=== PATIENT | female | born 1930 | race Caucasian/White ===

== ENCOUNTER 2022-02-07 19:38 | Inpatient (IN) | payer MEDICARE, OTHER ==
[~2022-02-07] VITALS: Ht 154.9 cm; Wt 59.0 kg
[2022-02-07] MEDS ORDERED: ONDANSETRON 4 MG/2 ML VIAL IV ONE (19:45)
[2022-02-07] MEDS ORDERED: IV NORMAL SALINE 500 ML BAG IV ONE (19:45)
--- NOTE | 2022-02-07 20:00 | NUR ---
Patient's daughter at bedside
--- NOTE | 2022-02-07 20:00 | NUR ---
Patient is a hard stick. tried 3x. Asked Stacey HENDERSON to do IV
[2022-02-07] MEDS ORDERED: ONDANSETRON 4 MG/2 ML VIAL ONE (20:04)
--- NOTE | 2022-02-07 20:04 | NUR ---
Patient is a/ox4, NAD noted. No SOB noted
--- NOTE | 2022-02-07 20:10 | NUR ---
Stacey HENDERSON tried inserting IV. Patient is a hard stick
--- NOTE | 2022-02-07 20:10 | NUR ---
patient taken to CT
[2022-02-07 20:18] LABS: HEMATOCRIT 33.1 % (31.2-41.9); MEAN CORPUSCULAR HEMOGLOBIN 31.3 uug (24.7-32.8); MEAN CORPUSCULAR VOLUME 90.2 fL (75.5-95.3); PLATELET COUNT (AUTO) 276 K/uL (179-408)
--- NOTE | 2022-02-07 20:30 | NUR ---
Patient back from CT
[2022-02-07 20:47] LABS: ALANINE AMINOTRANSFERASE 38 U/L (14-59); ALKALINE PHOSPHATASE 81 U/L (50-136); ASPARTATE AMINOTRANSFERASE 22 U/L (15-37); BILIRUBIN,DIRECT 0.1 mg/dL (0.0-0.2); BILIRUBIN,TOTAL 0.2 mg/dL (0.2-1.0); CARBON DIOXIDE 24 mmol/L (21-32); CHLORIDE 92 mmol/L (98-107); CREATININE 0.8 mg/dL (0.6-1.3); GLUCOSE 137 mg/dL (74-106); LIPASE 213 U/L (73-393); POTASSIUM 3.9 mmol/L (3.5-5.1); TOTAL PROTEIN, SERUM 6.6 g/dL (6.4-8.2); UREA NITROGEN, BLOOD 22 mg/dL (7-18)
[2022-02-07 21:03] LABS: *BILIRUBIN,URIN NEGATIVE (NEGATIVE); *BLOOD, URINE NEGATIVE (NEGATIVE); *CLARITY,URINE CLEAR (CLEAR); *COLOR,URINE YELLOW (YELLOW); *KETONES,URINE 1+ (NEGATIVE); *UROBILINOGEN,URINE 0.2 E.U./dl (NORMAL); LEUKOCYTE ESTERASE ,URINE NEGATIVE (NEGATIVE); NITRITE, URINE NEGATIVE (NEGATIVE); PH,URINE 6.5 (5.0-8.0); UGLUCOSE NEGATIVE (NEGATIVE)
--- NOTE | 2022-02-07 21:32 | NUR ---
called [facility] for panel call
--- NOTE | 2022-02-07 22:00 | NUR ---
Patient will be admitted to TELE room [address]ena
[2022-02-07] MEDS ORDERED: AMLO-212 PO (22:17)
[2022-02-07] MEDS ORDERED: INSU100C4 SQ (22:17)
[2022-02-07] MEDS ORDERED: METF-440 PO (22:17)
[2022-02-07] MEDS ORDERED: PRAV20TA4 PO (22:17)
[2022-02-07] MEDS ORDERED: LORA-259 PO (22:17)
[2022-02-07] MEDS ORDERED: LINA145C PO (22:17)
[2022-02-07] MEDS ORDERED: INSU100V7 SQ (22:17)
[2022-02-07] MEDS ORDERED: CARV12.52 PO (22:17)
[2022-02-07] MEDS ORDERED: CELE200C PO (22:17)
[2022-02-07] MEDS ORDERED: ONDANSETRON 4 MG/2 ML VIAL IV PRN (23:15)
[2022-02-07] MEDS ORDERED: PIPERACILLIN SODIUM/TAZOBACTAM 4.5 G in IV DEXTROSE 5% 50 ML IV SCH (23:15)
[2022-02-07] MEDS ORDERED: ACETAMINOPHEN 325 MG TABLET PO PRN (23:15)
[2022-02-07] MEDS ORDERED: REMEDY ESSENTIAL ZINC PASTE 113 GM TP PRN (23:15)
--- NOTE | 2022-02-07 23:38 | NUR ---
Tear Down Matcher made aware of midline order
--- NOTE | 2022-02-08 00:05 | NUR ---
Pt. admitted to TELE room 311 , under care of Dr. Pena Belongs List completed Phil[place] RN aware of patient's arrival
[2022-02-08] MEDS ORDERED: PIPERACILLIN/TAZO 4.5 GM VIAL IV ONE (00:16)
[2022-02-08] MEDS ORDERED: PIPERACILLIN SODIUM/TAZOBACTAM 4.5 G in IV DEXTROSE 5% 50 ML IV ONE (01:00)
--- NOTE | 2022-02-08 03:00 | NUR ---
Admitted TO ROOM 311; New IVHL placed ON RIGHT FOREARM; PT HAS AN ORDER FOR A MIDLINE; pt's needs attended; kept on clear liqs; patient uses bedpan at this time and refused lackey catheter; safety maintained;
[2022-02-08 04:00] VITALS: BP 99/59
[2022-02-08 06:38] LABS: MEAN CORPUSCULAR HEMOGLOBIN 31.3 uug (24.7-32.8); MEAN CORPUSCULAR VOLUME 90.2 fL (75.5-95.3); PLATELET COUNT (AUTO) 248 K/uL (179-408)
[2022-02-08 06:47] LABS: BILIRUBIN,TOTAL 0.5 mg/dL (0.2-1.0); CREATININE 0.8 mg/dL (0.6-1.3); MAGNESIUM 1.5 mg/dL (1.8-2.4); PHOSPHOROUS 1.9 mg/dL (2.5-4.9); POTASSIUM 3.6 mmol/L (3.5-5.1); TOTAL PROTEIN, SERUM 5.9 g/dL (6.4-8.2)
[2022-02-08] MEDS: AMLODIPINE 5 MG TABLET PO SCH ×2 (08:47→21:00)
[2022-02-08] MEDS: CARVEDILOL 12.5 MG TABLET PO SCH ×2 (08:47→17:31)
[2022-02-08] MEDS: PIPERACILLIN SODIUM/TAZOBACTAM 3.375 G in IV DEXTROSE 5% 100 ML IV SCH ×3 (08:48→21:07)
[2022-02-08] MEDS ORDERED: LORAZEPAM 1 MG TABLET PO PRN (09:00)
[2022-02-08] MEDS ORDERED: LORAZEPAM 1 MG TABLET PO SCH (09:00)
[2022-02-08] MEDS ORDERED: MAGNESIUM SULFATE/D5W 100 ML IV SCH ×2 (09:15→13:45)
[2022-02-08] MEDS: MAGNESIUM SULFATE/D5W 100 ML IV SCH ×2 (10:55→11:57)
[2022-02-08] MEDS ORDERED: SODIUM PHOSPHATE MM 15 MMOL in IV NORMAL SALINE 250 ML IV ONE (13:45)
--- NOTE | 2022-02-08 16:02 | NUR ---
To wait for Daughter before scanning the patient for CT Chest High Resolution, due to not being able to fallow instructions in language of patient. Yesterday, patient was unable to hold breath and fallow instruction for Abdomen/pelvis exam. RN to call Radiology when daughter is available today to translate when in scan.
--- NOTE | 2022-02-08 18:50 | NUR ---
Patient received care well throughout shift with no complaints of pain or distress. Patient now has Left upper arm midline, 18G. IV site patent and intact currently finishing sodium phosphate. Patient to receive Zosyn at 1999. Will endorse information to PM nurse. Patient had CT of Chest today, with patient's daughter at bedside. Bed left in lowest position with call light within reach. Comfort measures provided. Will endorse information to PM nurse.
[2022-02-08 20:00] VITALS: BP 127/39
[2022-02-08] MEDS: ATORVASTATIN 10 MG TABLET PO SCH (21:07)
[2022-02-08] MEDS: FUROSEMIDE 20 MG/2 ML VIAL IV SCH (21:07)
[2022-02-09] VITALS: BP 106/37
[2022-02-09] MEDS: PIPERACILLIN SODIUM/TAZOBACTAM 3.375 G in IV DEXTROSE 5% 100 ML IV SCH ×3 (02:03→16:24)
[2022-02-09 04:00] VITALS: BP 110/44
--- NOTE | 2022-02-09 05:40 | NUR ---
Slept well throughout the night. No distress noted. Maintained clear liquid diet, pt tolerating well. Denies pain or SOB. IV site intact. Tolerated ordered medications well. Safety maintained throughout the shift, will endorse to day shift.
[2022-02-09 06:43] LABS: CREATININE 0.8 mg/dL (0.6-1.3); POTASSIUM 3.2 mmol/L (3.5-5.1)
[2022-02-09] MEDS: FUROSEMIDE 20 MG/2 ML VIAL IV SCH ×2 (08:40→20:50)
[2022-02-09] MEDS: AMLODIPINE 5 MG TABLET PO SCH ×2 (08:44→20:50)
[2022-02-09] MEDS: CARVEDILOL 12.5 MG TABLET PO SCH ×2 (08:44→17:09)
[2022-02-09] MEDS ORDERED: POTASSIUM CHLORIDE 20 MEQ TAB.PRT.SR PO SCH (09:15)
[2022-02-09] MEDS: POTASSIUM CHLORIDE 20 MEQ POWDER PACKET PO SCH ×2 (09:25→10:44)
[2022-02-09] MEDS ORDERED: POTASSIUM CHLORIDE 20 MEQ POWDER PACKET PO ONE (09:45)
[2022-02-09 17:07] VITALS: BP 135/43
--- NOTE | 2022-02-09 18:03 | NUR ---
Patient received care well throughout shift with no complaints of pain or distress. Patient received klor-con during shift, due to low levels of potassium. Labs to be redrawn tomorrow for update. Patient bathed and washed during shift. IV site patent and intact. Patient remains on clear liquid diet, and tolerating feeding well. Bed left in lowest position with call light within reach. Comfort measures provided. Will endorse information to PM nurse.
[2022-02-09 20:29] VITALS: BP 119/33
[2022-02-09] MEDS: ATORVASTATIN 10 MG TABLET PO SCH (20:50)
[2022-02-10] MEDS: PIPERACILLIN SODIUM/TAZOBACTAM 3.375 G in IV DEXTROSE 5% 100 ML IV SCH ×3 (01:04→17:36)
[2022-02-10 04:40] VITALS: BP 133/42
--- NOTE | 2022-02-10 05:36 | NUR ---
Slept throughout the night. Bed bath given this AM, tolerated well. IV site intact. Tolerated all medications well with no adverse effectsw
[2022-02-10] MEDS: CARVEDILOL 12.5 MG TABLET PO SCH ×2 (08:00→17:13)
[2022-02-10] MEDS: AMLODIPINE 5 MG TABLET PO SCH ×2 (09:00→20:33)
[2022-02-10] MEDS: FUROSEMIDE 20 MG/2 ML VIAL IV SCH (09:20)
[2022-02-10] MEDS: GUAIFENESIN/DEXTROMETHORPHAN 5 ML UDC PO PRN (11:42)
[2022-02-10 12:06] VITALS: BP 102/40
--- NOTE | 2022-02-10 19:30 | NUR ---
Received pt awake, alert and orientedx3. Pt in no acute distress. Iv intact. Safety and comfort provided. Will continue to monitor. Addendum: 02/11/22 at 0231 by ELHAM BEEBE RN wrong time documented should be 2300
[2022-02-10 20:00] VITALS: BP 158/49
--- NOTE | 2022-02-10 20:00 | NUR ---
NSG: Received lying on bed no complaints of pain or distress. Patient now has Left upper arm midline IV site patent and intact. no c/o pain or discomfort at this time. Bed left in lowest position with call light within reach. Comfort measures provided.
[2022-02-10] MEDS: DOCUSATE SODIUM 100 MG CAPSULE PO SCH (20:33)
[2022-02-10] MEDS: ATORVASTATIN 10 MG TABLET PO SCH (20:33)
[2022-02-11] MEDS: PIPERACILLIN SODIUM/TAZOBACTAM 3.375 G in IV DEXTROSE 5% 100 ML IV SCH ×3 (00:46→20:14)
[2022-02-11 04:00] VITALS: BP 132/51
--- NOTE | 2022-02-11 06:52 | NUR ---
Pt in no acute distress.Midliner didn't come. Ammonium Sulfate Operator aware. Prescribed medication given and pt tolerated it well. Safety and comfort provided. All needs are met. Will endorse to incoming nurse for continuity of care.
[2022-02-11 07:03] LABS: MEAN CORPUSCULAR HEMOGLOBIN 31.7 uug (24.7-32.8); MEAN CORPUSCULAR VOLUME 90.2 fL (75.5-95.3); PLATELET COUNT (AUTO) 329 K/uL (179-408)
[2022-02-11 07:35] LABS: THYROID STIMULATING HORMONE 0.312 mIU/mL (0.358-3.740)
[2022-02-11 07:52] LABS: BILIRUBIN,TOTAL 0.5 mg/dL (0.2-1.0); CREATININE 0.9 mg/dL (0.6-1.3); MAGNESIUM 1.8 mg/dL (1.8-2.4); PHOSPHOROUS 2.8 mg/dL (2.5-4.9); POTASSIUM 3.6 mmol/L (3.5-5.1); TOTAL PROTEIN, SERUM 6.4 g/dL (6.4-8.2)
[2022-02-11] MEDS: AMLODIPINE 5 MG TABLET PO SCH ×2 (08:20→20:14)
[2022-02-11] MEDS: CARVEDILOL 12.5 MG TABLET PO SCH ×2 (08:20→17:37)
[2022-02-11] MEDS: DOCUSATE SODIUM 100 MG CAPSULE PO SCH ×2 (08:20→20:13)
[2022-02-11] MEDS ORDERED: INSULIN REGULAR, HUMAN 300 UNIT/3 ML VIAL SQ PRN (09:00)
[2022-02-11] MEDS ORDERED: DEXTROSE 50% 50 ML DISP.SYRIN IV PRN ×2 (09:00→12:00)
--- NOTE | 2022-02-11 11:28 | NUR ---
pt blood sugar by finger stick more then 600 stat lab draw orders and made aware
[2022-02-11] MEDS ORDERED: BLOOD SUGAR DIAGNOSTIC 1 EACH STRIP VI SCH (11:30)
[2022-02-11 11:39] VITALS: BP 130/41
[2022-02-11] MEDS ORDERED: METF-494 PO (11:43)
[2022-02-11] MEDS ORDERED: OLME1TAB92 PO (11:43)
[2022-02-11] MEDS ORDERED: ICOS1CAP PO (11:43)
[2022-02-11] MEDS ORDERED: ESCI-9 PO (11:43)
[2022-02-11] MEDS: METFORMIN HCL 500 MG TABLET PO SCH ×2 (11:44→17:37)
[2022-02-11] MEDS ORDERED: LIRA0.6P2 SQ (11:45)
[2022-02-11] MEDS: BLOOD SUGAR DIAGNOSTIC 1 EACH STRIP VI SCH ×3 (12:05→20:19)
[2022-02-11] MEDS: INSULIN REGULAR, HUMAN 300 UNIT/3 ML VIAL SQ PRN ×2 (12:07→15:48)
[2022-02-11 16:29] VITALS: BP 131/40
[2022-02-11] MEDS ORDERED: POLYVINYL ALCOHOL OPHT DROPS 15 ML BOTTLE EACHEYE PRN (18:00)
--- NOTE | 2022-02-11 19:40 | NUR ---
Received patient lying in bed. AAOX3. In no apparent distress. Denies any pain or SOB. Noted with sporadic cough, will provide cough medication per order. Left upper arm midline in place and right AC IV site intact and patent. Daughter at bedside. Needs assessed and attended to. Safety measure initiated and call light within reached.
[2022-02-11 20:09] VITALS: BP 110/53
[2022-02-11] MEDS: GUAIFENESIN/DEXTROMETHORPHAN 5 ML UDC PO PRN (20:26)
[2022-02-11] MEDS ORDERED: INSULIN REGULAR, HUMAN 300 UNITS/3 ML VIAL SQ PRN (21:00)
[2022-02-12 04:00] VITALS: BP 128/45
[2022-02-12] MEDS: PIPERACILLIN SODIUM/TAZOBACTAM 3.375 G in IV DEXTROSE 5% 100 ML IV SCH ×2 (04:21→12:37)
--- NOTE | 2022-02-12 05:57 | NUR ---
Patient slept well last night. In no acute distress. Denies any pain or SOB. No further coughing noted. No adverse reaction noted from IV antibiotic.
[2022-02-12 06:26] LABS: HEMATOCRIT 31.2 % (31.2-41.9); MEAN CORPUSCULAR VOLUME 89.5 fL (75.5-95.3); PLATELET COUNT (AUTO) 317 K/uL (179-408)
[2022-02-12] MEDS: BLOOD SUGAR DIAGNOSTIC 1 EACH STRIP VI SCH ×3 (06:37→15:35)
[2022-02-12 06:54] LABS: CARBON DIOXIDE 29 mmol/L (21-32); CHLORIDE 94 mmol/L (98-107); CREATININE 0.8 mg/dL (0.6-1.3); GLUCOSE 236 mg/dL (74-106); MAGNESIUM 1.5 mg/dL (1.8-2.4); PHOSPHOROUS 3.8 mg/dL (2.5-4.9); POTASSIUM 3.6 mmol/L (3.5-5.1); UREA NITROGEN, BLOOD 21 mg/dL (7-18)
[2022-02-12] MEDS: INSULIN REGULAR, HUMAN 300 UNIT/3 ML VIAL SQ PRN ×3 (07:46→15:48)
[2022-02-12] MEDS: MAGNESIUM SULFATE/D5W 100 ML IV SCH ×3 (07:48→10:33)
[2022-02-12] MEDS ORDERED: POTASSIUM CHLORIDE 20 MEQ POWDER PACKET PO ONE (08:00)
[2022-02-12] MEDS: DOCUSATE SODIUM 100 MG CAPSULE PO SCH (08:02)
[2022-02-12] MEDS: METFORMIN HCL 500 MG TABLET PO SCH ×2 (08:03→17:28)
[2022-02-12] MEDS: CARVEDILOL 12.5 MG TABLET PO SCH ×2 (08:03→17:28)
[2022-02-12] MEDS: AMLODIPINE 5 MG TABLET PO SCH (08:03)
[2022-02-12] MEDS ORDERED: MAGNESIUM OXIDE 400 MG TABLET PO ONE (09:00)
[2022-02-12] MEDS: GUAIFENESIN/DEXTROMETHORPHAN 5 ML UDC PO PRN (09:43)
[2022-02-12 15:58] VITALS: BP 135/40
[2022-02-12] MEDS ORDERED: PIPE3.379 IV (16:55)
[2022-02-12] MEDS ORDERED: MENT113O TP (16:55)
[2022-02-12] MEDS ORDERED: ACET325T53 PO (16:55)
[2022-02-12] MEDS ORDERED: POLY15DR27 EACHEYE (16:55)
[2022-02-12] MEDS ORDERED: DEXT50DI8 IV (16:55)
[2022-02-12] MEDS ORDERED: DOCU-141 PO (16:55)
[2022-02-12] MEDS ORDERED: Blood Sugar Diagnostic VI (16:55)
[2022-02-12] MEDS ORDERED: GUAI5SYR PO (16:55)
[2022-02-12] MEDS ORDERED: INSU100V28 SQ ×2 (16:55)
[2022-02-12] MEDS ORDERED: NUT.237L36 PO (16:55)
[2022-02-12] MEDS ORDERED: AMLO-212 PO (16:55)
[2022-02-12] MEDS ORDERED: GLUCERNA SHAKE 237 ML CAN PO SCH (17:00)
[2022-02-12 17:28] VITALS: BP 135/48
--- NOTE | 2022-02-12 18:08 | NUR ---
dc orders received noted and carried out dc instruction and education given to the pt. dc pt to aru via bed in stable condition
[2022-02-12] MEDS ORDERED: GUAI5SYR4 PO (18:46)
== END 2022-02-12 18:11 | DRG 393 ==
LOC: ER 19:40 → TELE3 23:43 → MEDSURG3 02-09 09:30
PROVIDERS: ADMIT Internal Medicine; ATTEND Internal Medicine
PROC: 05H633Z Insertion of Infusion Device into Left Subclavian Vein, Percutaneous Approach (ICD-10-PCS; principal; 2022-02-08)
PROC: B547ZZA Ultrasonography of Left Subclavian Vein, Guidance (ICD-10-PCS; 2022-02-08)
DX: K65.4 Sclerosing mesenteritis (principal); E43 Unspecified severe protein-calorie malnutrition; I50.31 Acute diastolic (congestive) heart failure; E87.1 Hypo-osmolality and hyponatremia; D68.59 Other primary thrombophilia; I11.0 Hypertensive heart disease with heart failure; E05.90 Thyrotoxicosis, unspecified without thyrotoxic crisis or storm; E11.65 Type 2 diabetes mellitus with hyperglycemia; E78.5 Hyperlipidemia, unspecified; E87.6 Hypokalemia; Z79.4 Long term (current) use of insulin; Z20.822 Contact with and (suspected) exposure to COVID-19; I05.2 Rheumatic mitral stenosis with insufficiency; K44.9 Diaphragmatic hernia without obstruction or gangrene; Z74.09 Other reduced mobility; Z68.24 Body mass index [BMI] 24.0-24.9, adult
CPT/HCPCS: 36415; 71045; 71270; 83605; 83690; 83735; 84100; 84443; 84484; 85025; 85730; 93005; 93307; 97161; A4663; G0378; J1815; J1940; J2405; J2543; J3475; J3490; J7040

== ENCOUNTER 2022-02-12 18:24 | Inpatient (IN) | payer MEDICARE, OTHER ==
[~2022-02-12] VITALS: Ht 154.9 cm; Wt 61.2 kg
[~2022-02-12 18:24] MED LIST: ACET325T53 PO; AMLO-212 PO; Blood Sugar Diagnostic VI; CARV12.52 PO; CELE200C PO; DEXT50DI8 IV; DOCU-141 PO; ESCI-9 PO; GUAI5SYR PO; ICOS1CAP PO; INSU100C4 SQ; INSU100V28 SQ; INSU100V7 SQ; LINA145C PO; LIRA0.6P2 SQ; LORA-259 PO; MENT113O TP; METF-494 PO; NUT.237L36 PO; OLME1TAB92 PO; PIPE3.379 IV; POLY15DR27 EACHEYE; PRAV20TA4 PO
[2022-02-12] MEDS ORDERED: GUAI5SYR4 PO (18:46)
[2022-02-12 20:40] VITALS: BP 118/30
[2022-02-12] MEDS ORDERED: LORAZEPAM 1 MG TABLET PO PRN (22:30)
[2022-02-12] MEDS ORDERED: POLYVINYL ALCOHOL OPHT DROPS 15 ML BOTTLE EACHEYE PRN (22:30)
[2022-02-12] MEDS ORDERED: INSULIN REGULAR, HUMAN 300 UNIT/3 ML VIAL SQ PRN ×2 (22:30)
[2022-02-12] MEDS ORDERED: DEXTROSE 50% 50 ML DISP.SYRIN IV PRN ×2 (22:30)
[2022-02-12] MEDS: DOCUSATE SODIUM 100 MG CAPSULE PO SCH (22:44)
[2022-02-12] MEDS: GUAIFENESIN/DEXTROMETHORPHAN 5 ML UDC PO PRN (22:45)
[2022-02-12] MEDS ORDERED: ACETAMINOPHEN 325 MG TABLET PO PRN (22:45)
[2022-02-12] MEDS: INSULIN GLARGINE,HUM 300 UNITS/3 ML CARTRIDGE SQ SCH (22:53)
[2022-02-12] MEDS ORDERED: PIPERACILLIN/TAZOBACTAM/D5W 50 ML IV ONE (23:44)
[2022-02-12] MEDS: PIPERACILLIN SODIUM/TAZOBACTAM 3.375 G in IV DEXTROSE 5% 50 ML IV SCH (23:49)
[2022-02-13 04:32] VITALS: BP 124/37
--- NOTE | 2022-02-13 05:54 | NUR ---
Pt slept throughout the night. C/o mild cough but denies SOB or any chest pain. Farsi speaking, able to make needs known. IV site intact. Tolerated all medications given. Safety maintained throughout the shift. Will endorse to day shift.
[2022-02-13] MEDS: PIPERACILLIN SODIUM/TAZOBACTAM 3.375 G in IV DEXTROSE 5% 50 ML IV SCH (06:19)
[2022-02-13] MEDS: BLOOD SUGAR DIAGNOSTIC 1 EACH STRIP VI SCH ×4 (06:32→20:46)
[2022-02-13 07:31] VITALS: BP 140/35
[2022-02-13] MEDS: INSULIN REGULAR, HUMAN 300 UNIT/3 ML VIAL SQ PRN ×4 (07:44→20:47)
[2022-02-13] MEDS ORDERED: GLUCERNA 1.2 1000ML LIQUID PO SCH (08:00)
[2022-02-13] MEDS ORDERED: Linaclotide (Linzess) 145 MCG) PO SCH (09:00)
[2022-02-13] MEDS: CARVEDILOL 12.5 MG TABLET PO SCH ×2 (09:23→16:38)
[2022-02-13] MEDS: ESCITALOPRAM OXALATE 10 MG TABLET PO SCH (09:24)
[2022-02-13] MEDS: DOCUSATE SODIUM 100 MG CAPSULE PO SCH ×2 (09:24→20:42)
[2022-02-13] MEDS: AMLODIPINE 5 MG TABLET PO SCH ×2 (09:24→20:43)
[2022-02-13] MEDS: CELECOXIB 200 MG CAPSULE PO SCH (09:24)
[2022-02-13] MEDS: GLUCERNA SHAKE 237 ML CAN PO SCH ×2 (09:25→16:38)
[2022-02-13] MEDS: METFORMIN XR 500 MG TAB.SR.24H PO SCH ×2 (09:27→18:03)
[2022-02-13] MEDS: PIPERACILLIN SODIUM/TAZOBACTAM 3.375 G in IV DEXTROSE 5% 100 ML IV SCH ×2 (13:40→21:46)
[2022-02-13] MEDS: CLOTRIMAZOLE/BETAMET DIPROP CREAM 15 GM TUBE TOP SCH ×2 (13:40→20:46)
[2022-02-13] MEDS ORDERED: PIPERACILLIN SODIUM/TAZOBACTAM 3.375 G in IV DEXTROSE 5% 50 ML IV SCH (14:00)
--- NOTE | 2022-02-13 14:03 | NUR ---
INTERDISCIPLINARY TEAM CONFERENCE
[2022-02-13 16:09] VITALS: BP 106/25
[2022-02-13 20:00] VITALS: BP 135/56
[2022-02-13] MEDS: INSULIN GLARGINE,HUM 300 UNITS/3 ML CARTRIDGE SQ SCH (21:01)
[2022-02-14 04:00] VITALS: BP 118/82
[2022-02-14] MEDS: PIPERACILLIN SODIUM/TAZOBACTAM 3.375 G in IV DEXTROSE 5% 100 ML IV SCH ×3 (05:33→21:09)
[2022-02-14] MEDS: BLOOD SUGAR DIAGNOSTIC 1 EACH STRIP VI SCH ×4 (06:19→21:08)
[2022-02-14 07:54] VITALS: BP 143/45
[2022-02-14] MEDS: INSULIN REGULAR, HUMAN 300 UNIT/3 ML VIAL SQ PRN ×3 (08:09→15:51)
[2022-02-14] MEDS: DOCUSATE SODIUM 100 MG CAPSULE PO SCH ×2 (08:10→20:58)
[2022-02-14] MEDS: METFORMIN XR 500 MG TAB.SR.24H PO SCH ×2 (08:10→17:38)
[2022-02-14] MEDS: CELECOXIB 200 MG CAPSULE PO SCH (08:10)
[2022-02-14] MEDS: ESCITALOPRAM OXALATE 10 MG TABLET PO SCH (08:11)
[2022-02-14] MEDS: GLUCERNA SHAKE 237 ML CAN PO SCH ×2 (08:11→16:14)
[2022-02-14] MEDS: AMLODIPINE 5 MG TABLET PO SCH ×2 (08:11→20:58)
[2022-02-14] MEDS: CLOTRIMAZOLE/BETAMET DIPROP CREAM 15 GM TUBE TOP SCH ×2 (08:12→21:08)
[2022-02-14] MEDS: CARVEDILOL 12.5 MG TABLET PO SCH ×2 (08:12→16:14)
[2022-02-14 15:02] VITALS: BP 129/46
--- NOTE | 2022-02-14 19:30 | NUR ---
Received pt awake, alert and orientedx3. Pt IV intact. Received pt in no acute distress. Pt daugfhter at bedside. Daughter of the pt telling staff to tell the dietary to put some taste on the food that her mom is eating. Safety and comfort provided. Will continue to monitor.
--- NOTE | 2022-02-14 19:31 | NUR ---
spoke to pt daughter GAYE .Gaye stated that staff not to be harsh in handling her mom when changing her diaper and to go quickly when her mother needed change of diaper. Staff reassure Amt that we will attend to the needs of her mother as soon as we can and will take good care of the pt.
--- NOTE | 2022-02-14 19:32 | NUR ---
bhavna is alert, oriented x4, no sob, resp even nonlabored skin warm and dry to touch, tolerated PT, OT services well, no events noted during the shfit, patient calls for change, and need met accordingly, kept clean and dry, convinced patient to ambulate to the bathroom with assist, patient refused and stated she wants to use the diaper, daughter Gaye is at bedside at this time, making accustations toward staff, saying that "nusing staff does not give a dam to patients, nurses are here to just make money and go home,thye are just sitting and hiding" this wirter tired to explain to the duaghter that your mother needs are met timely during the day shift, she is being changed frequently, kept her clean and dry. however daughter does not agree and stated that her maother is telling her that no one comes to change her. This physician underwriter have witnessnessd special effects designer assisted patieint change and with meals and with other activities throgh out the day. only skin issues patient noted with some perineal rash which is being treated with cream as ordered by MD, Seems effective. no other skin issues noted at this time, no distress noted at this time, daughter wanted to talke to cardroom supervisor, on duty cardroom supervisor Shannon made aware.
[2022-02-14 20:12] VITALS: BP 120/47
[2022-02-14] MEDS: LINZESS 145MG - PATIENT MAY USE OWN MED- MD OK PO SCH (20:58)
[2022-02-14] MEDS: INSULIN GLARGINE,HUM 300 UNITS/3 ML CARTRIDGE SQ SCH (21:05)
--- NOTE | 2022-02-14 21:30 | NUR ---
TARGET NETWORK ANALYST changed her diaper and put cream on her. Pt in no acute distress. Will continue to monitor.
--- NOTE | 2022-02-14 23:00 | NUR ---
Pt had bowel movement. Pt cleaned and put cream on perineal area. Will continue to monitor.
[2022-02-15 04:12] VITALS: BP 123/49
[2022-02-15] MEDS: PIPERACILLIN SODIUM/TAZOBACTAM 3.375 G in IV DEXTROSE 5% 100 ML IV SCH ×3 (05:33→21:12)
[2022-02-15] MEDS: BLOOD SUGAR DIAGNOSTIC 1 EACH STRIP VI SCH ×4 (06:39→20:16)
--- NOTE | 2022-02-15 06:39 | NUR ---
Pt in no acute distress. Prescribed medication given and pt tolerated it well. Pt stable. Pt vital signs stable. Pt taken care of and put cream on her perineal area. Pt can make her needs known. Will endorse to incoming nurse for continuity of care.
[2022-02-15 07:43] VITALS: BP 132/42
[2022-02-15] MEDS: GLUCERNA SHAKE 237 ML CAN PO SCH ×2 (08:57→17:13)
[2022-02-15] MEDS: METFORMIN XR 500 MG TAB.SR.24H PO SCH ×2 (08:58→17:24)
[2022-02-15] MEDS: CELECOXIB 200 MG CAPSULE PO SCH (08:59)
[2022-02-15] MEDS: DOCUSATE SODIUM 100 MG CAPSULE PO SCH ×2 (08:59→20:06)
[2022-02-15] MEDS: ESCITALOPRAM OXALATE 10 MG TABLET PO SCH (08:59)
[2022-02-15] MEDS: CLOTRIMAZOLE/BETAMET DIPROP CREAM 15 GM TUBE TOP SCH ×2 (09:00→20:21)
[2022-02-15] MEDS: INSULIN REGULAR, HUMAN 300 UNIT/3 ML VIAL SQ PRN ×3 (09:01→17:24)
[2022-02-15] MEDS: AMLODIPINE 5 MG TABLET PO SCH ×2 (09:02→20:06)
[2022-02-15] MEDS: CARVEDILOL 12.5 MG TABLET PO SCH ×2 (09:02→17:25)
[2022-02-15 15:02] VITALS: BP 125/40
--- NOTE | 2022-02-15 18:30 | NUR ---
pt is a/o x 3-4, Farsi speaking. Pt did not like meals, only had cup of soup for lunch. Daughter brought dinner from home, pt was happy to eat the food from home. No signs of acute distress. Daughter currently at bedside. No events during shift. Comfort measures provided, call light within reach. Will endorse to gallery or museum curator.
[2022-02-15 19:49] VITALS: BP 108/72
[2022-02-15] MEDS: LINZESS 145MG - PATIENT MAY USE OWN MED- MD OK PO SCH (20:05)
[2022-02-15] MEDS: GUAIFENESIN/DEXTROMETHORPHAN 5 ML UDC PO PRN (20:06)
[2022-02-15] MEDS: INSULIN REGULAR, HUMAN 300 UNITS/3 ML VIAL SQ PRN (20:18)
[2022-02-15] MEDS: INSULIN GLARGINE,HUM 300 UNITS/3 ML CARTRIDGE SQ SCH (20:20)
[2022-02-16 03:54] VITALS: BP 150/57
[2022-02-16] MEDS: PIPERACILLIN SODIUM/TAZOBACTAM 3.375 G in IV DEXTROSE 5% 100 ML IV SCH (05:40)
--- NOTE | 2022-02-16 06:14 | NUR ---
Awake alert and oriented x3-4. Patient visited by daughter, wants to speak to the doctor coz she wants to take patient home. Will relay message to incoming shift. IV ABT given as scheduled. Tolerated well. Patient having periods of diarrhea this am. kept clean and dry. All needs attended. No acute distress noted.
[2022-02-16 06:15] LABS: HEMATOCRIT 32.7 % (31.2-41.9); MEAN CORPUSCULAR HEMOGLOBIN 31.1 uug (24.7-32.8); MEAN CORPUSCULAR VOLUME 90.5 fL (75.5-95.3); PLATELET COUNT (AUTO) 347 K/uL (179-408)
[2022-02-16 06:25] LABS: CREATININE 0.8 mg/dL (0.6-1.3); MAGNESIUM 1.9 mg/dL (1.8-2.4); PHOSPHOROUS 3.5 mg/dL (2.5-4.9); POTASSIUM 3.8 mmol/L (3.5-5.1)
[2022-02-16] MEDS: BLOOD SUGAR DIAGNOSTIC 1 EACH STRIP VI SCH ×4 (06:36→21:23)
[2022-02-16 07:40] VITALS: BP 147/55
[2022-02-16] MEDS: DOCUSATE SODIUM 100 MG CAPSULE PO SCH ×2 (08:31→21:16)
[2022-02-16] MEDS: CARVEDILOL 12.5 MG TABLET PO SCH ×2 (08:31→17:25)
[2022-02-16] MEDS: ESCITALOPRAM OXALATE 10 MG TABLET PO SCH (08:31)
[2022-02-16] MEDS: AMLODIPINE 5 MG TABLET PO SCH ×2 (08:31→21:16)
[2022-02-16] MEDS: METFORMIN XR 500 MG TAB.SR.24H PO SCH ×2 (08:31→17:17)
[2022-02-16] MEDS: CELECOXIB 200 MG CAPSULE PO SCH (08:31)
[2022-02-16] MEDS: CLOTRIMAZOLE/BETAMET DIPROP CREAM 15 GM TUBE TOP SCH ×2 (08:32→21:30)
[2022-02-16] MEDS: INSULIN REGULAR, HUMAN 300 UNIT/3 ML VIAL SQ PRN ×3 (08:40→16:38)
[2022-02-16] MEDS: GLUCERNA SHAKE 237 ML CAN PO SCH ×2 (09:09→13:15)
--- NOTE | 2022-02-16 14:22 | NUR ---
IV fluids and antibiotics completed. Patient's IV site came off during physical therapy. Patient no longer in need of IV site.
[2022-02-16 15:29] VITALS: BP 126/57
--- NOTE | 2022-02-16 18:16 | NUR ---
Patient tolerated care well throughout shift with no complaints of pain or distress. Patient completed antibiotics during shift. Patient tolerating PT/OT today, and able to walk 5 feet more compared to yesterday. Pain managed through medicinal interventions. Bed left in lowest position. Comfort measures provided. Will endorse information to PM nurse.
[2022-02-16 20:32] VITALS: BP 138/38
[2022-02-16] MEDS: LINZESS 145MG - PATIENT MAY USE OWN MED- MD OK PO SCH (21:17)
[2022-02-16] MEDS: INSULIN REGULAR, HUMAN 300 UNITS/3 ML VIAL SQ PRN (21:25)
[2022-02-16] MEDS: INSULIN GLARGINE,HUM 300 UNITS/3 ML CARTRIDGE SQ SCH (21:26)
--- NOTE | 2022-02-17 04:16 | NUR ---
Resting in bed. AAOx3-4 VSS. Incontinent of bowel and bladder. BM noted this shift. Kept clean and dry. Will monitor patient. Fall precautions maintained. No complaints presented during shift.
[2022-02-17 04:46] VITALS: BP 131/62
[2022-02-17] MEDS: BLOOD SUGAR DIAGNOSTIC 1 EACH STRIP VI SCH ×4 (06:32→20:48)
[2022-02-17 07:30] VITALS: BP 124/44
[2022-02-17] MEDS: INSULIN REGULAR, HUMAN 300 UNIT/3 ML VIAL SQ PRN ×2 (08:20→12:40)
[2022-02-17] MEDS: CELECOXIB 200 MG CAPSULE PO SCH (08:47)
[2022-02-17] MEDS: ESCITALOPRAM OXALATE 10 MG TABLET PO SCH (08:48)
[2022-02-17] MEDS: CARVEDILOL 12.5 MG TABLET PO SCH ×2 (08:49→17:14)
[2022-02-17] MEDS: AMLODIPINE 5 MG TABLET PO SCH ×2 (08:49→20:41)
[2022-02-17] MEDS: DOCUSATE SODIUM 100 MG CAPSULE PO SCH ×2 (08:52→20:39)
[2022-02-17] MEDS: METFORMIN XR 500 MG TAB.SR.24H PO SCH ×2 (08:52→17:14)
[2022-02-17] MEDS: GLUCERNA SHAKE 237 ML CAN PO SCH ×2 (09:14→12:42)
[2022-02-17] MEDS: CLOTRIMAZOLE/BETAMET DIPROP CREAM 15 GM TUBE TOP SCH ×2 (09:14→20:52)
--- NOTE | 2022-02-17 10:00 | NUR ---
ASSISTED PATIENT UP ON THE CHAIR BY THE PHYSICAL THERAPY FOR THERAPEUTIC EXERCISES WITH FAIR ENDURANCE DENIES DISCOMFORTS NOT IN DISTRESS AT THIS TIME.
--- NOTE | 2022-02-17 10:33 | NUR ---
INDIVIDUALIZED PLAN OF CARE THIS WAS OBSERVED AND DONE ON 02/15/22
[2022-02-17 16:00] VITALS: BP 150/56
--- NOTE | 2022-02-17 18:00 | NUR ---
NO S/S OF HYPO/HYPERGLYCEMIC REACTIONS AT THIS TIME DAUGHTER IS AT HER BEDSIDE ASSISTING WITH HER DINNER GRACE IS FAIR AT THIS TIME WILL CONTINUE TO OBSERVE.
[2022-02-17 20:09] VITALS: BP 118/45
[2022-02-17] MEDS: LINZESS 145MG - PATIENT MAY USE OWN MED- MD OK PO SCH (20:38)
[2022-02-17] MEDS: INSULIN GLARGINE,HUM 300 UNITS/3 ML CARTRIDGE SQ SCH (20:47)
[2022-02-17] MEDS: INSULIN REGULAR, HUMAN 300 UNITS/3 ML VIAL SQ PRN (20:50)
[2022-02-18 04:09] VITALS: BP 125/50
[2022-02-18] MEDS: BLOOD SUGAR DIAGNOSTIC 1 EACH STRIP VI SCH ×3 (06:45→16:34)
[2022-02-18 07:32] VITALS: BP 145/44
[2022-02-18] MEDS: INSULIN REGULAR, HUMAN 300 UNIT/3 ML VIAL SQ PRN ×2 (08:20→11:36)
[2022-02-18] MEDS: DOCUSATE SODIUM 100 MG CAPSULE PO SCH (09:22)
[2022-02-18] MEDS: CELECOXIB 200 MG CAPSULE PO SCH (09:22)
[2022-02-18] MEDS: CARVEDILOL 12.5 MG TABLET PO SCH ×2 (09:23→17:42)
[2022-02-18] MEDS: ESCITALOPRAM OXALATE 10 MG TABLET PO SCH (09:23)
[2022-02-18] MEDS: AMLODIPINE 5 MG TABLET PO SCH (09:23)
[2022-02-18] MEDS: METFORMIN XR 500 MG TAB.SR.24H PO SCH ×2 (09:24→17:43)
[2022-02-18] MEDS: CLOTRIMAZOLE/BETAMET DIPROP CREAM 15 GM TUBE TOP SCH (09:24)
[2022-02-18] MEDS: GLUCERNA SHAKE 237 ML CAN PO SCH ×2 (10:20→12:58)
[2022-02-18 15:39] VITALS: BP 140/46
[2022-02-18 17:42] VITALS: BP 156/62
--- NOTE | 2022-02-18 18:07 | NUR ---
patient is in stable condition, alert, oriented x4, no sob, resp even nonlabored, skin warm and dry to touch, no distress noted, discharged home with ambulance, daughter is home, teaching provided to daughter on the phone about each medications, daughter verbalized understanding of it and stated that she has all the medications at home, instructed daughter to follow up with primary doctor with in one week, daughter stated she understood, daughter stated she had all the insulins and blood sugar supplies at home and she knows how to perform them, also teaching provided about hypoglycemia and hyperglycemia, symptoms and how to manage them, and when to call doctor, visit ER or call 911. belongings are accounted and signed, and sent with patient, patient own medications sent home as well. ID removed, no IV access on patient.
== END 2022-02-18 17:35 | disposition home health service (06) | DRG 947 ==
PROVIDERS: ADMIT Physical Medicine & Rehabilitation Pain Medicine; ATTEND Physical Medicine & Rehabilitation Pain Medicine
DX: R53.1 Weakness (principal); E43 Unspecified severe protein-calorie malnutrition; I50.33 Acute on chronic diastolic (congestive) heart failure; D68.59 Other primary thrombophilia; E87.1 Hypo-osmolality and hyponatremia; K65.4 Sclerosing mesenteritis; K44.0 Diaphragmatic hernia with obstruction, without gangrene; E11.65 Type 2 diabetes mellitus with hyperglycemia; E78.5 Hyperlipidemia, unspecified; I11.0 Hypertensive heart disease with heart failure; K59.09 Other constipation; I25.10 Atherosclerotic heart disease of native coronary artery without angina pectoris; M19.90 Unspecified osteoarthritis, unspecified site; E05.90 Thyrotoxicosis, unspecified without thyrotoxic crisis or storm; E87.70 Fluid overload, unspecified; I34.0 Nonrheumatic mitral (valve) insufficiency
CPT/HCPCS: 36415; 83735; 84100; 85025; 97161; 97535-GO-CO; J1815; J2543; Z7610